=== PATIENT | female | born 1995 | race Caucasian/White ===

== ENCOUNTER 2024-02-24 10:45 | Emergency (ER) | payer BC ==
[~2024-02-24] VITALS: Ht 170.2 cm; Wt 54.0 kg
[2024-02-24 10:50] VITALS: O2SAT 99
[2024-02-24] MEDS: ONDANSETRON HCL 4MG/2ML INJ IV STA (11:10)
[2024-02-24] MEDS: LACTATED RINGERS 1,000 ML IV ONE (11:11)
[2024-02-24] MEDS: LORAZEPAM 2MG/ML INJ IV ONE (11:13)
[2024-02-24 11:28] LABS: HEMOGLOBIN. 14.8 g/dL (12.0-16.0); MEAN CORPUSCULAR HEMOGLOBIN 31.6 pg (28.0-32.0); MEAN CORPUSCULAR HGB CONC 33.6 g/dL (31.0-37.0); MEAN CORPUSCULAR VOLUME 94.2 fL (81.0-99.0); MEAN PLATELET VOLUME 10.2 fl (7.4-10.4); PLATELET 196 x1000/uL (130-400); RED BLOOD CELL COUNT 4.68 mill/uL (4.2-5.4); RED CELL DISTRIBUTION WIDTH 13.1 % (11.6-14.6); WHITE BLOOD COUNT 9.9 x1000/uL (4.5-11.0)
[2024-02-24 11:38] LABS: DIFFERENTIAL COMMENT 1
[2024-02-24 11:40] LABS: HCG SCREEN NEGATIVE
[2024-02-24 11:46] LABS: CHLORIDE 108 mEq/L (98-107); POTASSIUM 3.8 mEq/L (3.5-5.1); SODIUM 137 mEq/L (136-145)
[2024-02-24 11:47] LABS: CALCIUM 9.4 mg/dL (8.7-10.4); CARBON DIOXIDE 19 mEq/L (21-32)
[2024-02-24 11:52] LABS: CREATININE 0.9 mg/dL (0.6-1.0); GLUCOSE 257 mg/dL (70-105); UREA NITROGEN BLOOD 11 mg/dL (9-23)
[2024-02-24 12:44] LABS: PLATELET ESTIMATE NORMAL
[2024-02-24 13:06] LABS: BETA HYDROXYBUTYRATE 0.7 mMol/L (0.0-0.3)
[2024-02-24] MEDS ORDERED: ONDA4TAB50 MT (13:07)
[2024-02-24] MEDS ORDERED: [UNRECOGNIZED DRUG - CODE] PO (13:08)
[2024-02-24 13:42] VITALS: BP 136/68; PULSE 98; RESP 20; TEMP 36.78072; O2SAT 98
== END 2024-02-24 13:50 | disposition home or self-care (01) ==
LOC: ER 11:03
DX: K52.9 Noninfective gastroenteritis and colitis, unspecified (principal); E10.9 Type 1 diabetes mellitus without complications
CPT/HCPCS: 99284; 96374; 96361; 96375; 80048; 82010; 84703; 83690; 83735; 85025; 36415; 93005; J2060; J2405; J7120